=== PATIENT | female | born 1945 | race Caucasian/White ===

== ENCOUNTER 2016-12-06 05:47 | Emergency (ER) | payer MEDICAID ==
[~2016-12-06] VITALS: Ht 162.6 cm; Wt 80.0 kg
[~2016-12-06 05:47] MED LIST: ASPI-664 PO; ATOR20TA38 PO; CYCL-319 PO; IBUP-1542 PO; LISI-327 PO; TRAM50TA2 PO
[2016-12-06 05:49] VITALS: Ht 162.6 cm; Wt 80.0 kg
--- NOTE | 2016-12-06 06:28 | ERD ---
ER Documentation Chief Complaint Date/Time DATE: 12/06/16 TIME: 06:15 Chief Complaint foreign body "bug" in right ear HPI 71-year-old female who presents emergency department for right ear pain. Stated that she felt like there is a bug or foreign body to his right ear. Denies headache, dizziness, blurred vision, neck pain, neck stiffness, shoulder pain, chest pain, back pain, abdominal pain, nausea, vomiting, loss of bowel bladder control, loss of balance, fever, chills. No known drug allergies. No past medical history. No surgeries. Does not take any medications home. Social: Not working at this time. Denies smoking, use of alcohol, use of illegal drugs. ROS All systems reviewed and are negative except as per history of present illness. Medications Home Meds Active Scripts Acetaminophen* (Tylophen*) 500 Mg Capsule, 1 CAP PO Q6H Y for PAIN AND OR ELEVATED TEMP, #20 CAP Prov:EDNAEVAN F 12/06/16 Ciprofloxacin Hcl/Dexameth (Ciprodex Otic Suspension) 7.5 Ml Drops.susp, 4 DROP RIGHT EAR BID for 7 Days, EA Prov:GURMEETLYDIAEVAN F 12/06/16 Amoxicillin* (Amoxicillin*) 500 Mg Cap, 500 MG PO TID for 5 Days, CAP Prov:GURMEETLYDIAEVAN F 12/06/16 Ibuprofen* (Motrin*) 600 Mg Tab, 600 MG PO Q6, #20 TAB Prov:MANISH VERA MD 05/26/15 Cyclobenzaprine Hcl* (Cyclobenzaprine Hcl*) 10 Mg Tablet, 10 MG PO TID, #30 TAB Prov:MANISH VERA MD 05/26/15 Tramadol HCl (Tramadol HCl) 50 Mg Tablet, 50 MG PO Q4 Y for PAIN, #20 TAB Prov:MANISH VERA MD 05/26/15 Reported Medications Atorvastatin Calcium* (Atorvastatin Calcium*) 20 Mg Tablet, 20 MG PO HS, TAB 06/05/14 Lisinopril-Hydrochlorothiazide (Lisinopril-HCTZ) 20-12.5 Mg Tab, 1 TAB PO DAILY , TAB 06/05/14 Aspirin* (Aspirin* EC) 81 Mg Tablet.dr, 81 MG PO DAILY, TAB 06/05/14 Allergies Allergies: Coded Allergies: No Known Allergy (Unverified , 06/05/14) PMhx/Soc History of Surgery: Yes Anesthesia Reaction: No Hx Neurological Disorder: No Hx Respiratory Disorders: No Hx Psychiatric Problems: No Hx Miscellaneous Medical Probl: No Hx Alcohol Use: No Hx Substance Use: No Hx Tobacco Use: No Smoking Status: Never smoker Physical Exam Vitals Vital Signs Date Time Temp Pulse Resp B/P Pulse Ox O2 Delivery O2 Flow Rate FiO2 12/06/16 05:49 96.4 71 20 144/72 97 Physical Exam Const: [] Head: Atraumatic Eyes: Normal Conjunctiva ENT: Nose and Mouth. Left ear: Unremarkable. Right ear: Noted a foreign body. No bleeding. No discharge. No hearing loss bilaterally. Neck: Full range of motion..~ No meningismus. Resp: Clear to auscultation bilaterally Cardio: Regular rate and rhythm, no murmurs Abd: Soft, non tender, non distended. Normal bowel sounds Skin: No petechiae or rashes Back: No midline or flank tenderness Ext: No cyanosis, or edema Neur: Awake and alert Psych: Normal Mood and Affect Results 24 hrs Current Medications Medications (Trade) Dose Ordered Sig/Trudi Route PRN Reason Start Time Stop Time Status Last Admin Dose Admin Lidocaine (Xylocaine 1% (Mdv) 20 ml) 20 ml ONCE ONCE SC 12/06/16 06:30 12/06/16 06:31 DC Procedures/MDM 71-year-old female who presents emergency department for right ear pain. Stated that she felt like there is a bug or foreign body to his right ear. Physical exam: Right ear has a foreign body. No bleeding. No discharge. Disease process was explained to the patient and family member. They both verbalized understanding and agreed with the treatment, foreign body removal, plan of care. Diagnosis: Otitis media versus otitis externa versus foreign body to the right ear Procedure: Foreign body removal to right ear. Removed small cockroach to the right ear. Reevaluation: Mildly erythematous external canal of the right ear. Right ear tympanic membrane is unremarkable. No bleeding. No discharge. No hearing loss. Denies headache, dizziness, blurred vision, neck pain, shoulder pain, neck stiffness, pain on eye movement. Nerves II through XII are intact. Romberg test negative. Stated that she feels much better at this time and is ready to go home. Diagnosis: Foreign body removal to the right ear. Prescription: Cipro otic drops. Amoxicillin p.o. Tylenol. Primary care physician the next 24-48 hours. Come back in [facility] department for any new symptoms or any worsening of symptoms. All questions and concerns are answered. Patient verbalized understanding and agreed with the plan of care. Departure Diagnosis: Primary Impression: Right ear pain Additional Impression: Foreign body Condition: Stable Additional Instructions: Up with PCP in the next 24-48 hours. PCP to refer patient to ENT in the next 24 -48 hours. All questions and concerns are answered. Patient verbalized understanding and agreed with the plan of care. EVAN BISHOP Dec 06, 2016 06:28
[2016-12-06] MEDS ORDERED: LIDOCAINE 1% (MDV) 20 ML INJ SC ONE (06:30)
[2016-12-06] MEDS ORDERED: AMOX500C2 PO (06:50)
[2016-12-06] MEDS ORDERED: ACET500C5 PO (06:50)
[2016-12-06] MEDS ORDERED: CIPR7.5D4 RIGHT EAR (06:50)
== END 2016-12-06 07:03 | disposition home or self-care (01) ==
LOC: FTE 05:47
DX: T16.1XXA Foreign body in right ear, initial encounter (principal); X58.XXXA Exposure to other specified factors, initial encounter; Y92.9 Unspecified place or not applicable; Z79.82 Long term (current) use of aspirin
CPT/HCPCS: Z7502; Z7610; 99283